=== PATIENT | female | born 1960 | race Caucasian/White ===

== ENCOUNTER 2021-06-09 12:28 | Outpatient (CLI) | payer MEDICAID ==
[2021-06-09 15:34] LABS: BASOPHILS # (AUTO) 0.1 10^3/uL (0.0-0.1); BASOPHILS % (AUTO) 1.2 %; EOSINOPHILS # (AUTO) 0.2 10^3/uL (0.0-0.7); EOSINOPHILS % (AUTO) 2.3 %; HCT - HEMATOCRIT 44.4 % (37.0-47.0); HGB - HEMOGLOBIN 14.8 g/dL (12.0-16.0); LYMPHOCYTES # (AUTO) 2.5 10^3/uL (1.5-3.5); LYMPHOCYTES % (AUTO) 33.5 %; MEAN CORPUSCULAR HEMOGLOBIN 31.6 pg (27.0-31.0); MEAN CORPUSCULAR HGB CONC 33.3 g/dL (32.0-36.0); MEAN CORPUSCULAR VOLUME 94.9 fL (81.0-99.0); MEAN PLATELET VOLUME 9.5 fL (7.9-10.8); MONOCYTES # (AUTO) 0.4 10^3/uL (0.0-1.0); MONOCYTES % (AUTO) 5.3 %; NEUTROPHILS # (AUTO) 4.2 10^3/uL (1.5-6.6); NEUTROPHILS % (AUTO) 57.4 %; PLT - PLATELET COUNT 335 10^3/uL (130-450); RED BLOOD COUNT 4.68 10^6/uL (4.20-5.40); RED CELL DISTRIBUTION WIDTH 12.8 % (12.0-15.0); WHITE BLOOD COUNT 7.3 x10^3/uL (4.8-10.8)
[2021-06-09 15:48] LABS: ALBUMIN 4.9 g/dL (3.2-5.5); ALBUMIN/GLOBULIN RATIO 1.6 (1.0-2.2); ALKALINE PHOSPHATASE 73 IU/L (42-121); ALT ALANINE AMINOTRANSFERASE 19 IU/L (10-60); AST ASPARTATE AMINOTRANSFERASE 23 IU/L (10-42); BUN - BLOOD UREA NITROGEN 14 mg/dL (6-20); CALCIUM 9.7 mg/dL (8.5-10.3); CARBON DIOXIDE - CO2 31 mmol/L (21-32); CHLORIDE 97 mmol/L (101-111); CHOL/HDL RATIO 4.1 (<4.4); CHOLESTEROL 248 mg/dL; CREATININE 0.8 mg/dL (0.4-1.0); GFR - MDRD 74 (>89); GLUCOSE 99 mg/dL (70-100); HDL CHOLESTEROL 61 mg/dL; LDL CHOLESTEROL,CALCULATED 165 mg/dL; LDL/HDL RATIO 2.7 (<4.4); POTASSIUM 3.5 mmol/L (3.5-5.0); SODIUM 138 mmol/L (135-145); TOTAL PROTEIN 7.9 g/dL (6.7-8.2); TRIGLYCERIDES 109 mg/dL; VLDL CHOLESTEROL 22 mg/dL
[2021-06-09 15:59] LABS: THYROID STIMULATING HORMONE 1.54 uIU/mL (0.34-5.60)
[2021-06-10 13:27] LABS: HEPATITIS C ANTIBODY NON-REACTIVE (NON-REACTIVE)
== END 2021-06-09 12:29 | disposition home or self-care (01) ==
LOC: LAB.S 12:28
PROVIDERS: ATTEND Registered Nurse
DX: Z00.00 Encounter for general adult medical examination without abnormal findings (principal)
CPT/HCPCS: 36415; 80053; 80061; 83721; 84443; 85025; 86803

== ENCOUNTER 2021-07-13 13:45 | Outpatient (CLI) | payer MEDICAID ==
[2021-07-13] MEDS ORDERED: IOPAMIDOL-300 100 ML VIAL ONE (13:50)
[2021-07-13] MEDS ORDERED: IOVERSOL 320 50 ML VIAL ONE (13:50)
[2021-07-13] MEDS ORDERED: IOVERSOL 320 50 ML VIAL PO ONE (15:26)
[2021-07-13] MEDS ORDERED: IOPAMIDOL-300 100 ML VIAL IVP ONE (15:26)
--- NOTE | 2021-07-13 16:25 | CT Report ---
PROCEDURE: Abdomen/Pelvis W INDICATIONS: LEFT UPPER QUAD ABD PAIN CONTRAST: IV CONTRAST: Isovue 300 ml: 100 PO CONTRAST: Optiray 320 ml50 TECHNIQUE: After the administration of IV and oral contrast, 5 mm thick sections acquired from the diaphragms to the symphysis. 5 mm thick coronal and sagittal reformats were acquired. For radiation dose reducti on, the following was used: automated exposure control, adjustment of mA and/or kV according to raquel ent size. COMPARISON: None. FINDINGS: Image quality: Excellent. ABDOMEN: Lung bases: Mild bibasilar scarring. Lung bases are otherwise clear. Heart size is normal. Solid organs: Liver and spleen are normal in size and enhancement. Gallbladder is contracted Bilia ry system is non dilated. Pancreas enhances normally. No adrenal nodules. Kidneys demonstrate norm al size and enhancement, without hydronephrosis. Peritoneum and bowel: Bowel loops demonstrate normal wall thickness and caliber. Normal appendix. N o free fluid or air. Nodes and vessels: No retroperitoneal or mesenteric adenopathy by size criteria. Aorta and inferior vena cava are normal in size. Miscellaneous: No ventral hernias. PELVIS: Genitourinary: Bladder wall thickness is normal. Miscellaneous: No inguinal hernias or adenopathy. Bones: No suspicious bony lesions. No vertebral body compression fractures. IMPRESSION: 1. No acute process. 2. No examination for left upper quadrant pain. 3. Normal appendix. Reviewed by: Angy Gonzalez MD on 07/13/2021 4:24 PM PDT Approved by: Angy Gonzalez MD on 07/13/2021 4:24 PM PDT Station ID: [id number]
== END 2021-07-13 13:46 | disposition home or self-care (01) ==
LOC: DI 13:45
PROVIDERS: ATTEND Surgery
DX: R10.12 Left upper quadrant pain (principal)
CPT/HCPCS: 74177; Q9967

== ENCOUNTER 2021-07-16 09:54 | Outpatient (CLI) | payer MEDICAID ==
--- NOTE | 2021-07-16 16:58 | DEXA Report ---
PROCEDURE: Dexa Spine and/or Hip INDICATIONS: POST MENOPAUSAL TECHNIQUE: Dual energy x-ray absorptiometry (DXA) was performed on a [employer] System. Regions measur ed are the AP Spine, femoral neck, and if needed forearm. COMPARISON: None. FINDINGS: Lumbar Spine: Bone Mineral Density 0.978 g/cm/cm,T score -1.7, osteopenia Left Hip: Bone Mineral Density 0.925 g/cm/cm,T score -0.7, normal Left Femoral Neck: Bone Mineral Density 0.932 g/cm/cm, T score -0.8, normal (T score greater or equal to -1.0: NORMAL) (T score from -1.1 to -2.4: OSTEOPENIA) (T score less than or equal to -2.5 to: OSTEOPOROSIS) Impression: Osteopenia at the lumbosacral spine overall, and the left hip overall and left femoral ne ck on targeted imaging show normal bone mineral density. Patients with diagnosis of osteoporosis or osteopenia should have regular bone mineral density assess ment. For those eligible for Medicare, routine testing is allowed once every 2 years. Testing frequ ency can be increased for patients who have rapidly progressing disease or for those who are receivin g medical therapy to restore bone mass. Reviewed by: João Olmos MD on 07/16/2021 4:56 PM PDT Approved by: João Olmos MD on 07/16/2021 4:56 PM PDT Station ID: [id number]
== END 2021-07-16 09:55 | disposition home or self-care (01) ==
LOC: DI 09:54
PROVIDERS: ATTEND Registered Nurse
DX: Z78.0 Asymptomatic menopausal state (principal); M85.88 Other specified disorders of bone density and structure, other site

== ENCOUNTER 2021-07-16 09:58 | Outpatient (CLI) | payer MEDICAID ==
--- NOTE | 2021-07-19 15:59 | Mammography Report ---
BILATERAL DIGITAL SCREENING MAMMOGRAM 3D/2D: 07/16/2021 CLINICAL: Routine screening. Baseline exam. Last mammo was when she was 42 years old here at [facility], [place] away and moved back after being gone for more than 10 years. No prior exams were available for comparison. There are scattered fibroglandular elements in both br easts. There is an asymmetry in the right breast central to the nipple in the retroareolar region. There also is an asymmetry in the right breast at 3 o'clock in the retroareolar region. There is an asymmetry in the left breast central to the nipple anterior depth. No other significant masses or calcifications are seen in either breast. IMPRESSION: INCOMPLETE: NEEDS ADDITIONAL IMAGING EVALUATION The asymmetry in the right breast central to the nipple in the retroareolar region is indeterminate. Additional views with possible ultrasound are recommended. The asymmetry in the right breast at 3 o'clock in the retroareolar region is indeterminate. Addition al views with possible ultrasound are recommended. The asymmetry in the left breast central to the nipple anterior depth is indeterminate. Additional v iews with possible ultrasound are recommended. This exam was interpreted at Station ID: [id number]. NOTE: For mammograms, a report in lay terms will be sent to the patient. Approximately 15% of breast malignancies will not be visualized mammographically. In the management of a palpable breast mass, a negative mammogram must not discourage biopsy of a clinically suspicious lesion. Electronically Signed By: Honorio Davis M.D., jr/isabel:07/16/2021 14:04:14 ACR BI-RADS Category 0: Incomplete 3340F PARENCHYMAL PATTERN: (A) - The breast(s) demonstrate(s) scattered fibroglandular densities. BI-RADS CATEGORY: (0) - 0 Mammo and [place] [id number] Immediate follow-up LATERALITY: (B)
== END 2021-07-16 09:59 | disposition home or self-care (01) ==
LOC: DI 09:58
PROVIDERS: ATTEND Registered Nurse
DX: Z12.31 Encounter for screening mammogram for malignant neoplasm of breast (principal); R92.8 Other abnormal and inconclusive findings on diagnostic imaging of breast

== ENCOUNTER 2021-08-12 10:44 | Outpatient (CLI) | payer MEDICAID ==
--- NOTE | 2021-08-16 09:37 | Ultrasound Report ---
LIMITED ULTRASOUND OF RIGHT BREAST: 08/12/2021 CLINICAL: Patient returns today to evaluate an asymmetry in the right breast. Comparison is made to exams dated: 08/12/2021 mammogram and 07/16/2021 mammogram - [facility]. Ultrasound of the right breast retroareolar was performed. Monson scale images of the real-time examin ation were reviewed. There is a benign area of fibroglandular tissue in the right breast central to the nipple in the retr oareolar region. There also is a benign area of fibroglandular tissue in the right breast at 4 o'clock in the retroare olar region. IMPRESSION: BENIGN There is no sonographic evidence of malignancy. The area of fibroglandular tissue in the right breast central to the nipple in the retroareolar regio n is benign. The area of fibroglandular tissue in the right breast at 4 o'clock in the retroareolar region is etelvina gn. Return to annual mammogram screening schedule is recommended. This exam was interpreted at Station ID: [id number]. Electronically Signed By: Honorio Davis M.D., jr/isabel:08/12/2021 15:21:06 Ultrasound BI-RADS: 2 Benign BI-RADS CATEGORY: (2) - 2 Mammogram [id number] return to screening LATERALITY: (B)
--- NOTE | 2021-08-16 09:37 | Mammography Report ---
BILATERAL DIGITAL DIAGNOSTIC MAMMOGRAM 3D/2D: 08/12/2021 CLINICAL: Patient returns today to evaluate asymmetries in bilateral breasts. Comparison is made to exam dated: 07/16/2021 mammogram - [facility]. There are sca ttered fibroglandular elements in both breasts. The asymmetry in the right breast central to the nipple in the retroareolar region is no longer seen and is consistent with fibroglandular tissue. The asymmetry in the right breast at 3 o'clock in the retroareolar region is no longer seen and is co nsistent with fibroglandular tissue. The asymmetry in the left breast central to the nipple in the retroareolar region is no longer seen a nd is consistent with fibroglandular tissue. No other significant masses or calcifications are seen in either breast. IMPRESSION: INCOMPLETE: NEEDS ADDITIONAL IMAGING EVALUATION Bilateral asymmetries all dissipate with spot compression, likely fibroglandular tissue. Ultrasound o f these regions of the breasts will be performed to exclude an underlying mass. This exam was interpreted at Station ID: [id number]. NOTE: For mammograms, a report in lay terms will be sent to the patient. Approximately 15% of breast malignancies will not be visualized mammographically. In the management of a palpable breast mass, a negative mammogram must not discourage biopsy of a clinically suspicious lesion. Electronically Signed By: Honorio Davis M.D. jr/:08/12/2021 12:02:52 ACR BI-RADS Category 0: Incomplete 3340F PARENCHYMAL PATTERN: (A) - The breast(s) demonstrate(s) scattered fibroglandular densities. BI-RADS CATEGORY: (0) - 0 Ultrasound [id number] Immediate follow-up LATERALITY: (B)
--- NOTE | 2021-08-16 09:37 | Ultrasound Report ---
LIMITED ULTRASOUND OF LEFT BREAST: 08/12/2021 CLINICAL: Patient returns today to evaluate a focal asymmetry in the left breast. Comparison is made to exams dated: 08/12/2021 mammogram and 07/16/2021 mammogram - [facility]. Ultrasound of the left breast retroareolar was performed. Monson scale images of the real-time examin ation were reviewed. There is a benign area of fibroglandular tissue in the left breast central to the nipple in the retro areolar region. IMPRESSION: BENIGN There is no sonographic evidence of malignancy. The area of fibroglandular tissue in the left breast is benign. Return to annual mammogram screening schedule is recommended. This exam was interpreted at Station ID: [id number]. Electronically Signed By: Honorio Davis M.D., jr/isabel:08/12/2021 15:19:34 Ultrasound BI-RADS: 2 Benign BI-RADS CATEGORY: (2) - 2 Mammogram [id number] return to screening LATERALITY: (B)
== END 2021-08-12 10:45 | disposition home or self-care (01) ==
LOC: DI 10:44
PROVIDERS: ATTEND Registered Nurse
DX: R92.8 Other abnormal and inconclusive findings on diagnostic imaging of breast (principal)

== ENCOUNTER 2021-11-08 07:24 | Day surgery (SDC) | payer MEDICAID ==
[2021-11-08] MEDS ORDERED: LACTATED RINGERS 1,000 ML IV ONE ×2 (07:46→09:43)
[2021-11-08] MEDS ORDERED: PROPOFOL 500 MG/50 ML 500 MG/50 ML VIAL ONE (08:43)
[2021-11-08] MEDS ORDERED: LIDOCAINE-MPF 2% 5 ML VIAL ONE (08:43)
--- NOTE | 2021-11-08 08:43 | ANESTHESIA ---
Pre-Anesthesia VS, & Labs - Diagnosis screening, abdominal pain - Procedure EGD, Colonoscopy Vital Signs: Temp Pulse Resp BP Pulse Ox 36.9 C 86 18 162/96 H 96 11/08/21 07:36 11/08/21 07:36 11/08/21 07:36 11/08/21 07:36 11/08/21 07:36 Height: 5 ft 11 in Weight (kg): 76 kg Body Mass Index: 23.3 BMI Classification: Healthy weight - NPO >8 hours - Is Patient ?: No Home Medications and Allergies No Known Home Medications 10/04/21 Allergies/Adverse Reactions: Allergies Allergy/AdvReac Type Severity Reaction Status Date / Time No Known Drug Allergies Allergy Verified 10/04/21 15:53 Anes History & Medical History - Anesthetic History Anesthesia Complications: reports: No previous complications Family history of Anesthesia Complications: Denies Family history of Malignant Hyperthermia: Denies - Medical History Cardiovascular: reports: Murmur Pulmonary: reports: None Gastrointestinal: reports: Other Urinary: reports: None Musculoskeletal: reports: None Endocrine/Autoimmune: reports: None Skin: reports: None Psychosocial: reports: Cannabis - Surgical History General: reports: EGD, Other Exam General: Alert, Oriented x3, Cooperative Dental: WNL Mouth Openin Fingerbreadth Neck Mobility: Normal Mallampati classification: II Thyromental Distance: 4-6 cm Plan Anesthesia Type: Total IV Consent for Procedure(s) Verified and Reviewed: Yes Code Status: Attempt Resuscitation ASA classification: 2-Mild systemic disease Is this case an emergency?: No
[2021-11-08] MEDS ORDERED: fentaNYL 100 MCG/2 ML VIAL ONE (08:57)
[2021-11-08 10:11] VITALS: BP 156/75
--- NOTE | 2021-11-08 10:47 | ANESTHESIA POST OP EVALUATION ---
Anesthesia Post Eval - Post Anesthesia Eval Vitals: Last Vital Signs Temp 36.9 C 11/08/21 10:09 Pulse 72 11/08/21 10:09 Resp 16 11/08/21 10:09 BP 156/75 H 11/08/21 10:09 Pulse Ox 99 11/08/21 10:09 CV Function Including HR & BP: Stable Pain Control: Satisfactory Nausea & Vomiting: Negative Mental Status: Baseline Respiratory Status: Airway Patent Hydration Status: Satisfactory Anesthesia Complications: None
== END 2021-11-08 07:25 | disposition home or self-care (01) ==
LOC: SDS 07:24
PROVIDERS: ATTEND Surgery
PROC: 0DB58ZX Excision of Esophagus, Via Natural or Artificial Opening Endoscopic, Diagnostic (ICD-10-PCS; 2021-11-08)
PROC: 0DBL8ZZ Excision of Transverse Colon, Via Natural or Artificial Opening Endoscopic (ICD-10-PCS; 2021-11-08)
PROC: 0DB98ZX Excision of Duodenum, Via Natural or Artificial Opening Endoscopic, Diagnostic (ICD-10-PCS; principal; 2021-11-08 08:15)
PROC: 0DB78ZX Excision of Stomach, Pylorus, Via Natural or Artificial Opening Endoscopic, Diagnostic (ICD-10-PCS; 2021-11-08 08:15)
DX: R11.10 Vomiting, unspecified (principal); R10.12 Left upper quadrant pain; K29.50 Unspecified chronic gastritis without bleeding; D12.3 Benign neoplasm of transverse colon; K64.8 Other hemorrhoids; K64.4 Residual hemorrhoidal skin tags; Q43.8 Other specified congenital malformations of intestine
CPT/HCPCS: 43239; 45380; J7120